=== PATIENT | female | born 1960 | race Caucasian/White ===

== ENCOUNTER → 2017-02-24 15:23 | Outpatient (CLI) | payer OTHER | END | disposition home or self-care (01) | LOC: D.LAB 15:23 | DX: R31.21 Asymptomatic microscopic hematuria (principal) ==

== ENCOUNTER 2019-04-10 09:00 | Outpatient (CLI) | payer MEDICAID | END 2019-04-10 10:00 | disposition home or self-care (01) | LOC: D.MAMMO 09:00 | PROVIDERS: ATTEND Family Medicine | DX: Z12.31 Encounter for screening mammogram for malignant neoplasm of breast (principal) ==